=== PATIENT | female | born 1945 | race Caucasian/White ===

== ENCOUNTER 2019-11-13 10:14 | Inpatient (IN) | payer MEDICARE, MEDICAID ==
[~2019-11-13] VITALS: Ht 160 cm; Wt 144.7 kg
--- NOTE | 2019-11-13 10:35 | NUR ---
[id number] FROM HOME FOR AMS PER FRIEND. AAOX2.VITAL SIGNAS CHECKED.ST HR 103.IV ON LAC #18.AXOX2.COUGHING WITH YELLOW SPUTUM.
[2019-11-13 10:58] LABS: BASOPHILS % (AUTO) 0.2 % (0.0-2.0); EOSINOPHILS % (AUTO) 0.1 % (0.0-6.0); HEMATOCRIT 32 % (33-45); HEMOGLOBIN 10.7 g/dL (11.5-14.8); LYMPHOCYTES # (AUTO) 0.4 /CMM (0.8-4.8); LYMPHOCYTES % (AUTO) 6.2 % (20.0-44.0); MEAN CORPUSCULAR HGB CONC 33 g/dl (31.0-36.0); MEAN CORPUSCULAR VOLUME 98 fL (82-100); MONOCYTES # (AUTO) 0.5 /CMM (0.1-1.30); MONOCYTES % (AUTO) 7.4 % (2.0-12.0); NEUTROPHILS # (AUTO) 6.1 /CMM (1.8-8.9); NEUTROPHILS % (AUTO) 86.1 % (43.0-81.0); PLATELET COUNT (AUTO) 142 /CMM (150-450); RED BLOOD CELL COUNT(AUTO) 3.28 MIL/uL (4.0-5.2); WHITE BLOOD COUNT (AUTO) 7.1 K/uL (4.3-11.0)
[2019-11-13 11:09] LABS: APPEARANCE,URINE Clear (CLEAR); BILIRUBIN,URINE SMALL (NEGATIVE); BLOOD, URINE Small Ery/uL (NEGATIVE); COLOR,URINE Yellow (YELLOW); KETONES,URINE Negative (NEGATIVE); LEUKOCYTE ESTERASE ,URINE Large (NEGATIVE); NITRITE, URINE Positive (NEGATIVE); PROTEIN,URINE >=300 mg/dl (NEGATIVE); UGLUCOSE Negative (NEGATIVE)
[2019-11-13 11:11] LABS: BACTERIA,URINE 1+ /HPF (None Seen); PH,URINE >9.0 (5.0-8.0)
[2019-11-13 11:12] LABS: SQUAMOUS EPITHELIAL CELL,UR Moderate /HPF (None Seen)
--- NOTE | 2019-11-13 12:15 | NUR ---
PATIENT TAKEN FOR CT SCAN
[2019-11-13 12:24] LABS: CARBON DIOXIDE 25 mmol/L (21-32); CHLORIDE 103 mmol/L (98-107); GLUCOSE 110 mg/dL (74-106); POTASSIUM 4.1 mmol/L (3.5-5.1); SODIUM SERUM 140 mmol/L (136-145)
[2019-11-13 12:25] LABS: CALCIUM, SERUM 9.3 mg/dL (8.5-10.1); CREATININE 1.4 mg/dL (0.6-1.3); UREA NITROGEN, BLOOD 44 mg/dL (7-18)
[2019-11-13 12:35] LABS: ACETAMINOPHEN 0 ug/ml (10-30); ALANINE AMINOTRANSFERASE 46 U/L (12-78); ALBUMIN 3.3 g/dL (3.4-5.0); ALKALINE PHOSPHATASE 92 U/L (46-116); ASPARTATE AMINOTRANSFERASE 226 U/L (15-37); BILIRUBIN,DIRECT 0.5 mg/dL (0.0-0.2); BILIRUBIN,TOTAL 1.9 mg/dL (0.2-1.0); SALICYLATE < 2.8 mg/dL (2.8-20.0); TOTAL PROTEIN, SERUM 8.3 g/dL (6.4-8.2)
--- NOTE | 2019-11-13 12:38 | NUR ---
called rn sup for bed, waiting
[2019-11-13 12:51] LABS: ALCOHOL, BLOOD < 3 mg/dL (0-0)
[2019-11-13] MEDS ORDERED: FURO20TA4 PO (12:58)
[2019-11-13] MEDS ORDERED: HYDR-3980 PO (12:58)
[2019-11-13] MEDS ORDERED: GABA-534 PO (12:58)
[2019-11-13] MEDS ORDERED: MELO-105 PO (12:58)
[2019-11-13] MEDS ORDERED: AMIT50TA3 PO (12:58)
[2019-11-13] MEDS ORDERED: ROPI0.255 PO (12:58)
[2019-11-13] MEDS ORDERED: BENA40TA8 PO (12:58)
[2019-11-13] MEDS ORDERED: FLUT16SP16 (12:58)
[2019-11-13] MEDS ORDERED: SULFAMETHOXAZOLE/TRIMETHOPRIM 20 ML in IV D5W 500 ML IV SCH (13:00)
[2019-11-13 13:02] LABS: SERUM AMMONIA 12 umol/L (11-32)
[2019-11-13] MEDS ORDERED: IV NS 0.9% 1,000 ML BAG IV ONE (13:30)
[2019-11-13] MEDS ORDERED: ASPIRIN 325 MG TABLET PO ONE (13:30)
[2019-11-13] MEDS ORDERED: ASPIRIN 325 MG TABLET ONE (13:32)
[2019-11-13] MEDS: SULFAMETHOXAZOLE/TRIMETHOPRIM 10 ML in IV D5W 250 ML IV SCH ×4 (13:33→23:59)
--- NOTE | 2019-11-13 14:30 | NUR ---
report given majo REYNA
[2019-11-13 14:51] VITALS: BP 143/59
--- NOTE | 2019-11-13 15:00 | NUR ---
LOSS PREVENTION/SAFETY DISTRICT MANAGER NOTE RECEIVED PATIENT IN BED ALERT WITH CONFUSION , PLACED ON TELE MONITOR SR HR 78 , WITH MULTIPLE WOUNDS ON BODY ,WOUND CARE CONSULT ORDERED , ADMITTED UNDER CARE DR MARJORIE MOHR DNP WITH DX ALOC , HOSPITAL,ORIENTATION DONE VS TAKEN , PLCED ON IVF ORDERED BED IN LOWEST AND LOCKED POSITION, CALL LIGHT WITHIN REACH
[2019-11-13] MEDS ORDERED: FLUTICASONE PROPIONATE 16 GM BOTTLE NS PRN (15:30)
[2019-11-13] MEDS ORDERED: Z GUARD REMEDY 2 OZ OINT TP PRN (16:00)
[2019-11-13] MEDS ORDERED: ENOXAPARIN SODIUM 30 MG/0.3 ML DISP.SYRIN SQ SCH (16:00)
[2019-11-13] MEDS ORDERED: ONDANSETRON HCL/PF 4 MG/2 ML VIAL IVP PRN (16:00)
[2019-11-13] MEDS ORDERED: ACETAMINOPHEN 325 MG TABLET PO PRN (16:00)
[2019-11-13] MEDS: IV NS 0.9% 1,000 ML IV PRN (16:09)
[2019-11-13] MEDS: GABAPENTIN 300 MG CAPSULE PO SCH (16:28)
[2019-11-13] MEDS: AMITRIPTYLINE HCL 25 MG TABLET PO SCH (16:28)
[2019-11-13] MEDS: MEROPENEM 500 MG in IV NS 0.9% 100 ML IV SCH (16:29)
[2019-11-13] MEDS ORDERED: FUROSEMIDE 20 MG TABLET PO SCH (17:00)
--- NOTE | 2019-11-13 17:04 | NUR ---
PRESS WRITER NOTE CALLED TO DR MARJORIE MOHR NOTIFIED THAT PATIENT I COUGHING AND PAIN NEW ORDER WITH MOTRIN AND ROBITUSSIN GIVEN WILL F\U
[2019-11-13] MEDS: GUAIFENESIN/D-METHORPHAN HB 5 ML UDC PO PRN (17:19)
[2019-11-13] MEDS ORDERED: IBUPROFEN 400 MG TABLET PO PRN (17:30)
--- NOTE | 2019-11-13 17:52 | NUR ---
telesales advisor note 2decho doing now
--- NOTE | 2019-11-13 18:04 | NUR ---
DISTRICT RESOURCE OFFICER NOTE Pt. complains of pain, offered prn Mortrin twice pt refused. Explained the benefits to her, pt refused stating that she knows that it wont help help her. Dr. Dionisio Singh notified of her troponin level trending up.
--- NOTE | 2019-11-13 18:52 | NUR ---
RN NOTES PATIENT IN STABLE CONDITION. ON TELE MONITOR WITH SINUS RHYTHM. NO SOB NOTED, 2L NC O2 SAT 96%. MULTIPLE WOUNDS DOCUMENTED SEE NURSING NOTES. PT IS ON IV FLUIDS RUNNING AT 75MLS/HR. ATE 25% OF HER DINNER. WILL CONTINUE TO MONITOR PT. SAFETY MAINTAINED. BED LOWERED, CALL LIGHT WITHIN REACH.
--- NOTE | 2019-11-13 19:23 | NUR ---
ENGLISH TEACHER NOTES PER DR MARJORIE RALPH TO INSERT CLARK CATHETER DUE TO PATIENT HAVING MULTIPLE WOUNDS ON HER BODY AND BEING INCONTINENT. WILL ENDORSE TO PM NURSE.
[2019-11-13 20:00] VITALS: BP_SYST 117; BP_SYST 121; BP_DIAS 71; BP_DIAS 73
[2019-11-14] VITALS: BP 116/54
[2019-11-14] MEDS: HYDROCODONE/APAP 5/325MG 1 EACH TABLET PO PRN ×4 (00:02→20:34)
[2019-11-14] MEDS ORDERED: SULFAMETHOXAZOLE/TRIMETHOPRIM 10 ML VIAL IV ONE (00:11)
[2019-11-14 04:00] VITALS: BP 128/65
[2019-11-14] MEDS: IV NS 0.9% 1,000 ML IV PRN ×2 (05:03→19:00)
[2019-11-14] MEDS: MEROPENEM 500 MG in IV NS 0.9% 100 ML IV SCH ×2 (05:12→17:42)
[2019-11-14 06:39] LABS: BASOPHILS % (AUTO) 0.1 % (0.0-2.0); EOSINOPHILS % (AUTO) 2.2 % (0.0-6.0); HEMATOCRIT 27 % (33-45); HEMOGLOBIN 9.1 g/dL (11.5-14.8); LYMPHOCYTES # (AUTO) 0.5 /CMM (0.8-4.8); MEAN CORPUSCULAR HGB CONC 34 g/dl (31.0-36.0); MEAN CORPUSCULAR VOLUME 98 fL (82-100); MONOCYTES # (AUTO) 0.5 /CMM (0.1-1.30); MONOCYTES % (AUTO) 10.3 % (2.0-12.0); NEUTROPHILS # (AUTO) 3.7 /CMM (1.8-8.9); NEUTROPHILS % (AUTO) 77.4 % (43.0-81.0); PLATELET COUNT (AUTO) 99 /CMM (150-450); RED BLOOD CELL COUNT(AUTO) 2.74 MIL/uL (4.0-5.2); WHITE BLOOD COUNT (AUTO) 4.8 K/uL (4.3-11.0)
[2019-11-14 06:55] LABS: THYROID STIMULATING HORMONE 1.317 uIU/mL (0.358-3.74)
[2019-11-14 07:00] LABS: ALBUMIN 2.6 g/dL (3.4-5.0); BILIRUBIN,TOTAL 1.4 mg/dL (0.2-1.0); CALCIUM, SERUM 8.5 mg/dL (8.5-10.1); CREATININE 1.2 mg/dL (0.6-1.3); PHOSPHORUS 2.8 mg/dL (2.5-4.9); POTASSIUM 3.8 mmol/L (3.5-5.1); TOTAL PROTEIN, SERUM 6.6 g/dL (6.4-8.2)
--- NOTE | 2019-11-14 07:50 | NUR ---
TD/RN INITIAL NOTES,AM RECEIVED BEDSIDE REPORT FROM NIGHT NURSE. PT ALERT, AWAKE, FOLLOWS COMMANDS. PT ON NASAL CANULA, NO DISTRESS NOTED. PT ON TELE, SINUS. PT MOANING AND COMPLAINING OF PAIN, PAIN MEDICATION GIVEN AND WILL REASSESS. BARIATRIC BED ORDERED BY MD, WAITING FOR ARRIVAL. WOUND CONSULT PENDING, MULTIPLE SKIN ISSUES NOTED. PT ON SOFT DIET, ASSISTANCE NEEDED. PIV'S PATENT AND INTACT, NO S/S OF INFECTION OR INFILTRATION NOTED, IVF INFUSING ORDERED. ALL NEEDS WILL BE ATTENDED TO, SAFETY MEASURES TAKEN, BED IN LOW POSITION, SIDE RAILS UP, CALL LIGHT WITHIN REACH. WILL CONTINUE CARE.
[2019-11-14 08:00] VITALS: BP 123/60
--- NOTE | 2019-11-14 08:00 | NUR ---
TD/RN: WOUND RN AT BEDSIDE. PT ASSESSED, WITH FOLLOW ORDERS RECEIVED. BARIATRIC BED ON ITS WAY.
--- NOTE | 2019-11-14 08:07 | NUR ---
WOUND CARE CONSULT: PT PRESENTS WITH MULTIPLE SKIN ISSUES INCLUDING STAGE 3 ULCERS TO SACRUM AND BILATERAL BUTTOCKS, INCONTINENCE ASSOCIATED SKIN DAMAGE TO GLUTEAL CREASE AND THIGHS WELL DISCOLORATION WITH THICKENED SKIN AND RAISED AREAS TO BILATERAL LOWER LEGS, TENDER DISCOLORED AREAS TO PLANTAR HEELS, ALL PRESENT ON ADMISSION. RECOMMEND SURGICAL CONSULT AND PODIATRY CONSULT. BARIZ-good ETS AIR BED ORDERED. PT IS INCONTINENT OF STOOL. CLARK CATH NOTED. ALL SKIN PROTECTION AND WOUND CARE RECOMMENDATIONS DISCUSSED WITH NURSING STAFF. DEFER TO PODIATRY FOR LOWER EXTREMITIES. DR BULMARO SUAZO AND DR CASTILLO NOTIFIED OF SURGICAL AND DPM CONSULT REQUESTS. WILL SEE PRN. YADAV IN AGREEMENT WITH PLAN OF CARE. CURRENT GONZALES SCORE IS 10. Addendum: 11/14/19 at 0811 by DIXIE CASTILLO WNDNU Amended: Links added.
[2019-11-14] MEDS ORDERED: HYDROGEL DRESSING 90 GM TUBE TP PRN (08:30)
[2019-11-14] MEDS: ASPIRIN EC 81 MG TABLET.DR PO SCH (08:46)
[2019-11-14] MEDS: SULFAMETHOXAZOLE/TRIMETHOPRIM 10 ML in IV D5W 250 ML IV SCH ×2 (08:46→16:13)
[2019-11-14] MEDS: AMITRIPTYLINE HCL 25 MG TABLET PO SCH (08:46)
[2019-11-14] MEDS: GABAPENTIN 300 MG CAPSULE PO SCH ×2 (08:46→17:42)
[2019-11-14] MEDS: ropiniROLE 0.5 MG TABLET PO SCH (08:47)
[2019-11-14] MEDS: BENAZEPRIL HCL 20 MG TABLET PO SCH (08:50)
[2019-11-14] MEDS: HYDROGEL DRESSING 90 GM TUBE TP SCH (08:51)
[2019-11-14 08:55] LABS: APPEARANCE,URINE CLEAR (CLEAR); BILIRUBIN,URINE NEGATIVE (NEGATIVE); BLOOD, URINE TRACE Ery/uL (NEGATIVE); COLOR,URINE YELLOW (YELLOW); KETONES,URINE NEGATIVE (NEGATIVE); LEUKOCYTE ESTERASE ,URINE SMALL (NEGATIVE); NITRITE, URINE NEGATIVE (NEGATIVE); PROTEIN,URINE NEGATIVE (NEGATIVE); UGLUCOSE NEGATIVE (NEGATIVE); UROBILINOGEN,URINE 0.2 EU/dL (0.2)
[2019-11-14] MEDS ORDERED: SULFAMETHOXAZOLE/TRIMETHOPRIM 10 ML in IV D5W 250 ML IV SCH (09:00)
[2019-11-14] MEDS ORDERED: MELOXICAM 7.5 MG TABLET PO SCH (09:00)
[2019-11-14 09:01] LABS: BACTERIA,URINE None seen /HPF (None Seen); RBC,URINE 0-2 /HPF (0-2); SQUAMOUS EPITHELIAL CELL,UR Few /HPF (None Seen)
[2019-11-14 10:01] LABS: EOSINOPHIL,URINE None Seen
[2019-11-14 10:26] LABS: CREATININE, URINE 28.8 MG/DL (30.0-125.0)
[2019-11-14 16:00] VITALS: BP 111/61
[2019-11-14] MEDS ORDERED: ENOXAPARIN SODIUM 30 MG/0.3 ML DISP.SYRIN SQ SCH (18:30)
[2019-11-14] MEDS ORDERED: APIXABAN 5 MG TABLET PO SCH (18:30)
--- NOTE | 2019-11-14 18:34 | NUR ---
relayed result patient positive dvt lower extremities ,also platelet significantly drop ,raeann costa changed lovenox to eliquis.
--- NOTE | 2019-11-14 18:58 | NUR ---
TD/RN: ENDING NOTES,AM BEDSIDE REPORT WILL BE ENDORSED TO NIGHT NURSE. PT ALERT, AWAKE, FOLLOWS COMMANDS. ON NASAL CANULA, NO DISTRESS. POSITIVE DVT RELAYED TO MARJORIE AGUAYO, ORDERS RECEIVED. MULTIPLE WOUNDS NOTED, WOUND CARE DONE PER MD ORDERS. PIVS PATENT AND INTACT, NO S/S OF INFECTION NOTED. IVF INFUSING ORDERED. ALL NEEDS ATTENDED TO, SAFETY MEASURES TAKEN, BED IN LOW POSITION, SIDE RAILS UP, CALL LIGHT WITHIN REACH. WILL CONTINUE CARE.
[2019-11-14 20:00] VITALS: BP 125/66
[2019-11-14] MEDS: RIVAROXABAN 15 MG TABLET PO SCH (20:33)
[2019-11-15] MEDS: SULFAMETHOXAZOLE/TRIMETHOPRIM 10 ML in IV D5W 250 ML IV SCH ×2 (00:28→09:35)
[2019-11-15] MEDS: IV NS 0.9% 1,000 ML IV PRN ×2 (03:59→18:28)
[2019-11-15 04:00] VITALS: BP 112/59
[2019-11-15] MEDS: MEROPENEM 500 MG in IV NS 0.9% 100 ML IV SCH ×2 (04:17→16:16)
[2019-11-15] MEDS: HYDROCODONE/APAP 5/325MG 1 EACH TABLET PO PRN ×5 (04:20→23:07)
--- NOTE | 2019-11-15 07:00 | NUR ---
LANDSCAPER NOTES PATIENT IS A/O 2-3 PATIENT IS IN 2LPM O2 . PATIENT IS SATURATING WELL AT 96 %. IS RESTING COMFORABLE IN BED AND EASILY WOKEN WITH NAME AND TOUCH . PATIENT HAS MULTIPLE WOUNDS DRESSINGS INTACT AND DRY. PATIENT DOES SEEM TO HAVE GENERALIZED EDEMA NON PITTING. PATIENT HAS CLARK INTACT. PATENT AND INTACT. PATIENT HAS RFA 22 AND LFA 22 WITH NS @ 75 ML/HR . BED LOCKED AND LOWEST POSITION CALL LIGHT WITH IN REACH. ALL SAFETY PRECAUTIONS IMPLEMENTED PER HOSPITAL POLICY .
[2019-11-15 07:06] LABS: ALBUMIN 2.3 g/dL (3.4-5.0); BILIRUBIN,TOTAL 0.8 mg/dL (0.2-1.0); CALCIUM, SERUM 7.8 mg/dL (8.5-10.1); CREATININE 1.2 mg/dL (0.6-1.3); MAGNESIUM 1.9 mg/dL (1.8-2.4); PHOSPHORUS 2.8 mg/dL (2.5-4.9); POTASSIUM 3.8 mmol/L (3.5-5.1); TOTAL PROTEIN, SERUM 6.1 g/dL (6.4-8.2)
[2019-11-15 07:22] LABS: BASOPHILS % (AUTO) 0.2 % (0.0-2.0); EOSINOPHILS % (AUTO) 7.7 % (0.0-6.0); HEMATOCRIT 25 % (33-45); HEMOGLOBIN 8.5 g/dL (11.5-14.8); LYMPHOCYTES # (AUTO) 0.5 /CMM (0.8-4.8); LYMPHOCYTES % (AUTO) 11.6 % (20.0-44.0); MEAN CORPUSCULAR HGB CONC 34 g/dl (31.0-36.0); MEAN CORPUSCULAR VOLUME 98 fL (82-100); MONOCYTES # (AUTO) 0.4 /CMM (0.1-1.30); MONOCYTES % (AUTO) 10.6 % (2.0-12.0); NEUTROPHILS # (AUTO) 2.9 /CMM (1.8-8.9); NEUTROPHILS % (AUTO) 69.9 % (43.0-81.0); PLATELET COUNT (AUTO) 88 /CMM (150-450); RED BLOOD CELL COUNT(AUTO) 2.54 MIL/uL (4.0-5.2); WHITE BLOOD COUNT (AUTO) 4.1 K/uL (4.3-11.0)
[2019-11-15 08:00] VITALS: BP 120/65
[2019-11-15] MEDS: ASPIRIN EC 81 MG TABLET.DR PO SCH (09:32)
[2019-11-15] MEDS: ropiniROLE 0.5 MG TABLET PO SCH (09:34)
[2019-11-15] MEDS: GABAPENTIN 300 MG CAPSULE PO SCH ×2 (09:34→16:18)
[2019-11-15] MEDS: BENAZEPRIL HCL 20 MG TABLET PO SCH (09:34)
[2019-11-15] MEDS: AMITRIPTYLINE HCL 25 MG TABLET PO SCH (09:36)
[2019-11-15] MEDS: HYDROGEL DRESSING 90 GM TUBE TP SCH (09:36)
[2019-11-15] MEDS: RIVAROXABAN 15 MG TABLET PO SCH ×2 (09:37→16:17)
--- NOTE | 2019-11-15 13:57 | NUR ---
RN MS NOTES - FNS PATIENT PER REQUEST MECHANICAL SOFT DIET. PATIENT STATE SHE IS HAVING TROUBLE WITH CHEWING DUE TO TEETH
[2019-11-15] MEDS: GUAIFENESIN/D-METHORPHAN HB 5 ML UDC PO PRN ×2 (14:47→19:48)
[2019-11-15 16:00] VITALS: BP 123/55
--- NOTE | 2019-11-15 18:42 | NUR ---
RN MS NOTES CLOSING PATIENT IS A/O X4 PATIENT IS ON O2 PER DR ORDERS . PATIENT SEEM WHAT LOOKS LIKE GENERALIZED EDEMA. PATIENT SHOWS NO SIGNS OF ACUTE RESPIRATORY DISTRESS, EVEN AND UNLABORED BREATHING.BED LOCK AND LOWEST POSITION CALL LIGHT WITH IN REACH . PATIENT TURNED AND REPOSITION Q2 HOURS .ALL SAFETY MEASURE IMPLEMENTED PER HOSPITAL POLICY. ALL METS MET WILL ENDORSE TO PM SHIFT
--- NOTE | 2019-11-15 19:40 | NUR ---
MS1 RN NOTES RECEIVED ON BED ON SEMI FOWLERS POSITION,BREATHING NON LABORED,O2 IN USED ON AND OFF.O2 SAT 95% ON ROOM AIR.IVF NS AT 75ML/HR RATE INFUSING VIA IV PUMP ON LFA,SITE PATENT.CLARK CATH IN PLACE DRAINING YELLOWISH OUTPUT.OBESE, ON GEL BED FOR SKIN MANAGEMENT.BILATERAL LOWER LEG WITH DRESSING INTACT AND DRY,ELEVATED ON PILLOWS.CALL LIGHT IN REACH,NEEDS ANTICIPATED.
--- NOTE | 2019-11-15 19:48 | NUR ---
MS1 RN NOTES C/O ON AND OFF WHITFIELD COUGH,MEDICATED WITH ROBITUSSIN DM 5ML PO PER PATIENT REQUEST.
[2019-11-15 20:00] VITALS: BP 116/76
--- NOTE | 2019-11-15 23:07 | NUR ---
MS1 RN NOTES PAIN MANAGEMENT C/O PAIN 7/10 ON PAIN SCALE ON BILATERAL LOWER EXTREMITIES.MEDICATED WITH NORCO 5/325MG, 1 TAB PO ORDERED.
--- NOTE | 2019-11-16 00:45 | NUR ---
MS1 RN NOTES EVENING CARE RENDERED,TOLERATED WELL.
--- NOTE | 2019-11-16 01:00 | NUR ---
MS1 RN NOTES AWAKE,NOTED SLIGHT BLOOD ON HER BLANKET,CLAIMED SHE BLOW OUT MUCUS FROM HER NOSE AND THERE'S SMALL BLOOD CLOT.NOTED HER RIGHT INDEX FINGER SMEARED WITH BLOOD.TRIED TO DIG ON HER NOSE WITH HER NAILS LONG,MOST LIKELY IT IRRITATES THE NASAL MUCOSA
--- NOTE | 2019-11-16 01:05 | NUR ---
MS1 RN NOTES ADVISED TO STOP DIGGING INSIDE HER NOSE TO PREVENT FURTHER IRRITATION AND BLEEDING
[2019-11-16 04:00] VITALS: BP 123/54
[2019-11-16] MEDS: HYDROCODONE/APAP 5/325MG 1 EACH TABLET PO PRN ×5 (04:22→23:29)
--- NOTE | 2019-11-16 04:22 | NUR ---
MS1 RN NOTES AWAKE,RESTLESS,C/O BILATERAL FOOT PAIN 6/10 ON PAIN SCALE.MEDICATED WITH NORCO 5/325MG,1 TAB PO ORDERED
[2019-11-16] MEDS: MEROPENEM 500 MG in IV NS 0.9% 100 ML IV SCH ×2 (04:23→18:13)
--- NOTE | 2019-11-16 06:15 | NUR ---
MS1 RN NOTES SLEPT WITH INTERVALS,DRESSING CHANGE DONE WITH BETADINE ON BILATERAL FOOT,CONTINUE TO ELEVATE ON PILLOWS,EDEMA IMPROVED.MEPILEX CHANGED TO SACRAL AREA.IVF IN PROGRESS ON LEFT ARM.PAIN MANAGEMENT EFFECTIVE.IN NO ACUTE DISTRESS.CALL LIGHT IN REACH,NEEDS ATTENDED.
[2019-11-16 06:50] LABS: BASOPHILS % (AUTO) 0.2 % (0.0-2.0); EOSINOPHILS % (AUTO) 8.2 % (0.0-6.0); HEMATOCRIT 25 % (33-45); HEMOGLOBIN 8.6 g/dL (11.5-14.8); LYMPHOCYTES # (AUTO) 0.5 /CMM (0.8-4.8); LYMPHOCYTES % (AUTO) 9.7 % (20.0-44.0); MEAN CORPUSCULAR HGB CONC 34 g/dl (31.0-36.0); MEAN CORPUSCULAR VOLUME 99 fL (82-100); MONOCYTES # (AUTO) 0.6 /CMM (0.1-1.30); MONOCYTES % (AUTO) 11.9 % (2.0-12.0); NEUTROPHILS # (AUTO) 3.8 /CMM (1.8-8.9); PLATELET COUNT (AUTO) 109 /CMM (150-450); RED BLOOD CELL COUNT(AUTO) 2.57 MIL/uL (4.0-5.2); WHITE BLOOD COUNT (AUTO) 5.4 K/uL (4.3-11.0)
--- NOTE | 2019-11-16 07:00 | NUR ---
RN MS1 - OPENING NOTES PATIENT IS A/O 2-3 PATIENT IS IN 2LPM O2 . PATIENT IS SATURATING WELL AT 97 %. IS RESTING COMFORTABLY AND AWAKE . PATIENT HAS MULTIPLE WOUNDS DRESSINGS INTACT AND DRY. PATENT HAS BILATERAL WOUNDS ON THE HEELS . PATIENT DOES SEEM TO HAVE GENERALIZED EDEMA NON PITTING. PATIENT HAS CLARK INTACT. PATENT AND INTACT. PATIENT HAS RFA 22 AND LFA 22 WITH NS @ 75 ML/HR . BED LOCKED AND LOWEST POSITION CALL LIGHT WITH IN REACH. ALL SAFETY PRECAUTIONS IMPLEMENTED PER HOSPITAL POLICY .
[2019-11-16 07:19] LABS: CALCIUM, SERUM 7.6 mg/dL (8.5-10.1); CARBON DIOXIDE 28 mmol/L (21-32); CHLORIDE 108 mmol/L (98-107); CREATININE 1.2 mg/dL (0.6-1.3); GLUCOSE 93 mg/dL (74-106); MAGNESIUM 1.9 mg/dL (1.8-2.4); PHOSPHORUS 2.6 mg/dL (2.5-4.9); POTASSIUM 4.4 mmol/L (3.5-5.1); SODIUM SERUM 143 mmol/L (136-145); UREA NITROGEN, BLOOD 29 mg/dL (7-18)
[2019-11-16 08:00] VITALS: BP 159/67
[2019-11-16] MEDS: ASPIRIN EC 81 MG TABLET.DR PO SCH (09:00)
[2019-11-16] MEDS: ropiniROLE 0.5 MG TABLET PO SCH (09:16)
[2019-11-16] MEDS: GABAPENTIN 300 MG CAPSULE PO SCH ×2 (09:17→18:07)
[2019-11-16] MEDS: BENAZEPRIL HCL 20 MG TABLET PO SCH (09:17)
[2019-11-16] MEDS: GUAIFENESIN/D-METHORPHAN HB 5 ML UDC PO PRN (09:17)
[2019-11-16] MEDS: HYDROGEL DRESSING 90 GM TUBE TP SCH (09:18)
[2019-11-16] MEDS: RIVAROXABAN 15 MG TABLET PO SCH ×2 (09:19→18:08)
[2019-11-16] MEDS: AMITRIPTYLINE HCL 25 MG TABLET PO SCH (09:20)
[2019-11-16] MEDS: CARVEDILOL 12.5 MG TABLET PO SCH ×2 (10:33→21:15)
[2019-11-16] MEDS: IV NS 0.9% 1,000 ML IV PRN (14:45)
[2019-11-16 16:00] VITALS: BP 122/65
[2019-11-16] MEDS ORDERED: BUMETANIDE INJ 4 MG in IV NS 0.9% 24 ML IV ONE (16:30)
[2019-11-16] MEDS ORDERED: POTASSIUM CHLORIDE 20 MEQ TAB.PRT.SR PO ONE (16:30)
--- NOTE | 2019-11-16 19:30 | NUR ---
MS RN OPENING NOTES, RECEIVED PATIENT IN BED AWAKE. PATIENT IS A/O X4. PATIENT IS ON 2L O2 TOLERATING WELL. NO ACUTE RESPIRATORY DISTRESS OR SOB NOTED AT THIS TIME. PATIENT HAS GENERALIZED EDEMA. IV ON LFA #22 TKO. FLUSHING AND NO S/S OF INFILTRATION NOTED. BED IN LOCK/LOWEST POSITION, CALL LIGHT WITHIN REACH. ALL SAFETY MEASURE IMPLEMENTED PER HOSPITAL POLICY. WILL CONTINUE TO MONITOR.
[2019-11-17] MEDS: HYDROCODONE/APAP 5/325MG 1 EACH TABLET PO PRN ×6 (03:30→23:19)
[2019-11-17 04:00] VITALS: BP 123/47
--- NOTE | 2019-11-17 04:45 | NUR ---
MS RN NOTES, PATIENT REQUESTED PAIN MEDICATION, NORCO, AT 0325, CRYING AND COMPLAINING OF PAIN 8/10 AT THE TIME, AFTER PULLING THE MED AND SCANNING IT PATIENT WAS SLEEP AND STILL SLEEP 0440. VS STABLE, NO ACUTE DISTRESS NOTED AT THIS TIME. PATIENT DID NOT WAKE UP DURING 0400 VS MONITORING, WILL CONTINUE TO MONITOR.
[2019-11-17] MEDS: MEROPENEM 500 MG in IV NS 0.9% 100 ML IV SCH ×2 (04:59→16:18)
[2019-11-17 06:13] LABS: BASOPHILS % (AUTO) 0.2 % (0.0-2.0); EOSINOPHILS % (AUTO) 13.2 % (0.0-6.0); HEMATOCRIT 27 % (33-45); LYMPHOCYTES # (AUTO) 0.5 /CMM (0.8-4.8); LYMPHOCYTES % (AUTO) 10.8 % (20.0-44.0); MEAN CORPUSCULAR HGB CONC 34 g/dl (31.0-36.0); MEAN CORPUSCULAR VOLUME 99 fL (82-100); MONOCYTES # (AUTO) 0.6 /CMM (0.1-1.30); MONOCYTES % (AUTO) 11.6 % (2.0-12.0); NEUTROPHILS # (AUTO) 3.2 /CMM (1.8-8.9); NEUTROPHILS % (AUTO) 64.2 % (43.0-81.0); PLATELET COUNT (AUTO) 114 /CMM (150-450); RED BLOOD CELL COUNT(AUTO) 2.71 MIL/uL (4.0-5.2)
--- NOTE | 2019-11-17 06:38 | NUR ---
MS RN CLOSING NOTES, PATIENT IN BED SLEEPING AROUSES EASILY. PATIENT IS A/O X4. PATIENT IS ON 2L O2, TOLERATING WELL. NO ACUTE RESPIRATORY DISTRESS OR SOB NOTED AT THIS TIME. PATIENT HAS GENERALIZED EDEMA. IV ON LFA #22 TKO. FLUSHING AND NO S/S OF INFILTRATION NOTED. BED IN LOCK/LOWEST POSITION, CALL LIGHT WITHIN REACH. ALL SAFETY MEASURE IMPLEMENTED. WILL ENDORSE THE CONTINUES CARE TO AM RN.
[2019-11-17 06:52] LABS: CREATININE 1.2 mg/dL (0.6-1.3); MAGNESIUM 1.8 mg/dL (1.8-2.4); PHOSPHORUS 3.3 mg/dL (2.5-4.9); POTASSIUM 4.7 mmol/L (3.5-5.1)
--- NOTE | 2019-11-17 07:00 | NUR ---
RN MS NOTES - OPENING PATIENT IS IN BED RESTING COMFORTABLY 2 X RAILS UP PATIENT IS ASLEEP BUT EASILY WOKEN WITH NAME AND TOUCH . PATIENT IS A/O X2-3 PATIENT IS ON 2LPM 02. PATIENT IS TOLERATING PRESCRIBED PATIENT HAS MULTIPLE WOUNDS DRESS INTACT AND DRY. PATIENT HAS BILATERAL WOUNDS ON THE HEELS. PATIENT DOES SEEM TO HAVE GENERALIZED EDEMA NON PITTING. PATIENT HAS CLARK INTACT AND PATENT. PATIENTS URINE IS YELLOW PATIENT HAS RFA 22 AND LFA 22 BOTH LINES PATENT AND INTACT. BED LOCKED AND LOWEST POSITION CALL LIGHT WITH IN REACH. ALL SAFETY PRECAUTIONS IMPLEMENTED PER HOSPITAL POLICY
[2019-11-17 08:00] VITALS: BP_SYST 134; BP_SYST 138; BP_DIAS 60; BP_DIAS 87
[2019-11-17] MEDS ORDERED: FUROSEMIDE 40 MG TABLET PO SCH (09:00)
[2019-11-17] MEDS ORDERED: ropiniROLE 0.5 MG TABLET PO SCH (09:00)
[2019-11-17] MEDS: GABAPENTIN 300 MG CAPSULE PO SCH ×2 (09:18→16:18)
[2019-11-17] MEDS: ASPIRIN EC 81 MG TABLET.DR PO SCH (09:18)
[2019-11-17] MEDS: CARVEDILOL 12.5 MG TABLET PO SCH ×2 (09:19→21:07)
[2019-11-17] MEDS: AMITRIPTYLINE HCL 25 MG TABLET PO SCH (09:19)
[2019-11-17] MEDS: BENAZEPRIL HCL 20 MG TABLET PO SCH (09:20)
[2019-11-17] MEDS: RIVAROXABAN 15 MG TABLET PO SCH ×2 (09:21→16:19)
[2019-11-17] MEDS: HYDROGEL DRESSING 90 GM TUBE TP SCH (09:24)
[2019-11-17] MEDS: GUAIFENESIN/D-METHORPHAN HB 5 ML UDC PO PRN (10:43)
[2019-11-17 12:00] VITALS: BP 101/48
[2019-11-17] MEDS ORDERED: RIVA10TA PO (13:21)
[2019-11-17 16:00] VITALS: BP 101/48
[2019-11-17 16:11] LABS: *SPE A/G RATIO 0.7 (0.7-1.7); *SPE ALBUMIN 2.4 g/dL (2.9-4.4); *SPE ALPHA-1-GLOBULIN 0.3 g/dL (0.0-0.4); *SPE ALPHA-2-GLOBULIN 0.6 g/dL (0.4-1.0); *SPE BETA GLOBULIN 0.9 g/dL (0.7-1.3); *SPE GLOBULIN, TOTAL 3.5 g/dL (2.2-3.9); *SPE M-SPIKE Not Observed g/dL (Not Observed); *SPEGAMMA GLOBULIN 1.7 g/dL (0.4-1.8)
--- NOTE | 2019-11-17 19:16 | NUR ---
RN MS NOTES CLOSING PATIENT IS IN BED RESTING COMFORTABLY WITH 2 X RAILS UP PATINET IS AWAKE AND HEALTH RECORDS TECHNOLOGY TEACHER AT BED SIDE. PATIENT IS A/O X3 PATIENT IS ON 2LMP 02 ON AND OFF. PATIENT IS TOLERATING PRECRIBED BY . PATIENT HAS MULTIPLE WOUNDS DRESS INTACT AND DRY. PATIENT HAS BILATERAL WOUNDS ON THE HEELS . PATIENT DOES SEEM TO HAVE GENERALIZED EDEMA NON PITTING. PATIENT HAS CLARK INTACT AND PATENT WITH 2880 OUT CLEAR AND YELLOW . PATIENT HAS RFA 22 AND LFA 22 BOTH LINES PATENT AND INTACT. BED LOCKED AND LOWEST POSITION CALL LIGHT WITH IN REACH . ALL SAFETY MEASURE IMPLEMENTED PER HOSPITAL POLICY PATIENT WAITING FOR TRANSPORTATION 1999 ENDORSED TO PM SHIFT PATIENT BELONGINGS SIGNED
--- NOTE | 2019-11-17 19:30 | NUR ---
MS RN OPENING NOTES, RECEIVED PATIENT IN BED AWAKE. PATIENT IS A/O X4. PATIENTS CARE GIVERS AT BEDSIDE. PATIENT IS ON 2L O2 TOLERATING WELL. NO ACUTE RESPIRATORY DISTRESS OR SOB NOTED AT THIS TIME. PATIENT HAS GENERALIZED EDEMA. IV ON LFA #22 TKO. FLUSHING AND NO S/S OF INFILTRATION NOTED. PATIENT IS SCHEDULED TO BE DISCHARGE HOME AT 8PM. ALL DOCUMENTS SIGNED AND PATIENT IS WAITING FOR AMBULANCE. BED IN LOCK/LOWEST POSITION, CALL LIGHT WITHIN REACH. WILL CONTINUE TO MONITOR.
[2019-11-17 20:00] VITALS: BP 112/46
[2019-11-17 21:07] VITALS: BP 112/46
--- NOTE | 2019-11-17 22:15 | NUR ---
MS RN NOTE, AMBULANCE WAS SCHEDULED FOR 1999 AND POSTPONED TO 2199 AND AT 2215 PER CAREGIVERS REQUEST I CALLED THE AMBULANCE AND THE PICKUP WILL BE AT 0100 T0 0130. WILL CONTINUE TO MONITOR THE PATIENT.
--- NOTE | 2019-11-17 23:15 | NUR ---
THE AMBULANCE CALLED AND BECAUSE OF A CANCELATIONS THEY HAD THE PATIENT WILL BE PICKED UP IN 20 TO 30 MIN.
[2019-11-18 15:06] LABS: PTH, INTACT 46 pg/mL (15-65)
[2019-12-05] MEDS ORDERED: RIVAROXABAN 10 MG TABLET PO SCH (17:00)
== END 2019-11-18 00:38 | disposition home or self-care (01) | DRG 871 ==
LOC: ER 10:20 → TELE1 13:23 → MEDSG1 11-14 10:13
PROVIDERS: ADMIT Nurse Practitioner Acute Care; ATTEND Nurse Practitioner Acute Care
DX: A41.9 Sepsis, unspecified organism (principal); N17.0 Acute kidney failure with tubular necrosis; I21.A1 Myocardial infarction type 2; G93.41 Metabolic encephalopathy; I50.33 Acute on chronic diastolic (congestive) heart failure; I82.411 Acute embolism and thrombosis of right femoral vein; E87.2 Acidosis; R17 Unspecified jaundice; N39.0 Urinary tract infection, site not specified; I13.0 Hypertensive heart and chronic kidney disease with heart failure and stage 1 through stage 4 chronic kidney disease, or unspecified chronic kidney disease; Z68.43 Body mass index [BMI] 50.0-59.9, adult; L89.616 Pressure-induced deep tissue damage of right heel; D69.6 Thrombocytopenia, unspecified; L89.626 Pressure-induced deep tissue damage of left heel; I11.0 Hypertensive heart disease with heart failure; D63.8 Anemia in other chronic diseases classified elsewhere; J44.9 Chronic obstructive pulmonary disease, unspecified; N18.9 Chronic kidney disease, unspecified; B35.1 Tinea unguium; G25.81 Restless legs syndrome; Z87.440 Personal history of urinary (tract) infections; I27.20 Pulmonary hypertension, unspecified; E66.01 Morbid (severe) obesity due to excess calories; I87.2 Venous insufficiency (chronic) (peripheral); I89.0 Lymphedema, not elsewhere classified; J45.909 Unspecified asthma, uncomplicated; E86.0 Dehydration; D36.7 Benign neoplasm of other specified sites; L97.529 Non-pressure chronic ulcer of other part of left foot with unspecified severity; Z88.0 Allergy status to penicillin; B96.4 Proteus (mirabilis) (morganii) as the cause of diseases classified elsewhere; R40.2413 Glasgow coma scale score 13-15, at hospital admission
CPT/HCPCS: 36415; 70450-TC; 71045-TC; 73630-TC; 80048-TC; 80053-TC; 80061-TC; 80076-TC; 80305; 81000-TC; 82140-TC; 82550-TC; 82570-TC; 82728-TC; 83540-TC; 83605-TC; 83735-TC; 83880; 83970; 84100-TC; 84155; 84155-TC; 84165; 84300-TC; 84439-TC; 84443-TC; 84484-TC; 85025-TC; 85730-TC; 87081-TC; 87086-TC; 87186-TC; 93307-TC; 93970-TC; 97530-TC; A6248; A6253; G0378; G0480; J1650; J2185; J3490; J7030; J7060

== ENCOUNTER 2019-12-12 15:04 | Inpatient (IN) | payer MEDICAID, MEDICARE ==
[~2019-12-12] VITALS: Ht 160 cm; Wt 147.9 kg
[~2019-12-12 15:04] MED LIST: AMIT50TA3 PO; BENA40TA8 PO; FLUT16SP16; FURO20TA4 PO; GABA-534 PO; HYDR-3980 PO; MELO-105 PO; RIVA10TA PO; ROPI0.255 PO
--- NOTE | 2019-12-12 15:20 | NUR ---
PT AAOX4. BIBPA. C/O "MY DOCTOR SAID MY SODIUM WAS LOW AND THAT I SHOULD GO TO THE ED AND RECIEVE FLUIDS." EDEMA NOTED ON B LEGS. PT ALSO HAS A CATHETER AND STATES SHE HAS IT DUE TO HER NOT BEING ABLE TO AMBULATE. PT STATES SHE LIVES AT HOME AND HAS A CAREGIVER. PLACED ON MONITOR AND PULSE OX. VSS. AT BEDSIDE FOR EVAL. NO ACUTE DISTRESS NOTED. WILL COTNINUE TO MONITOR.
[2019-12-12] MEDS ORDERED: IV NS 0.9% 1,000 ML BAG IV ONE (15:30)
[2019-12-12] MEDS ORDERED: ONDANSETRON HCL/PF 4 MG/2 ML VIAL IVP ONE (15:30)
[2019-12-12] MEDS ORDERED: ONDANSETRON HCL/PF 4 MG/2 ML VIAL ONE (15:30)
--- NOTE | 2019-12-12 15:37 | NUR ---
URINE AND LABS COLLECTED BY LINE ORDERING CLINICIAN
[2019-12-12 15:39] LABS: APPEARANCE,URINE Cloudy (CLEAR); BASOPHILS % (AUTO) 0.7 % (0.0-2.0); BILIRUBIN,URINE Negative (NEGATIVE); BLOOD, URINE Small Ery/uL (NEGATIVE); COLOR,URINE Yellow (YELLOW); EOSINOPHILS % (AUTO) 10.1 % (0.0-6.0); HEMATOCRIT 28 % (33-45); HEMOGLOBIN 9.4 g/dL (11.5-14.8); KETONES,URINE Negative (NEGATIVE); LEUKOCYTE ESTERASE ,URINE Small (NEGATIVE); LYMPHOCYTES # (AUTO) 0.8 /CMM (0.8-4.8); LYMPHOCYTES % (AUTO) 19.4 % (20.0-44.0); MEAN CORPUSCULAR HGB CONC 34 g/dl (31.0-36.0); MEAN CORPUSCULAR VOLUME 100 fL (82-100); MONOCYTES # (AUTO) 0.5 /CMM (0.1-1.30); MONOCYTES % (AUTO) 12.7 % (2.0-12.0); NEUTROPHILS # (AUTO) 2.3 /CMM (1.8-8.9); NEUTROPHILS % (AUTO) 57.1 % (43.0-81.0); NITRITE, URINE Negative (NEGATIVE); PLATELET COUNT (AUTO) 133 /CMM (150-450); PROTEIN,URINE Negative (NEGATIVE); RED BLOOD CELL COUNT(AUTO) 2.81 MIL/uL (4.0-5.2); UGLUCOSE Negative (NEGATIVE); UROBILINOGEN,URINE 0.2 EU/dL (0.2)
[2019-12-12 15:44] LABS: PH,URINE >9.0 (5.0-8.0)
[2019-12-12 15:52] LABS: ALANINE AMINOTRANSFERASE 14 U/L (12-78); ALBUMIN 2.8 g/dL (3.4-5.0); ALKALINE PHOSPHATASE 78 U/L (46-116); ASPARTATE AMINOTRANSFERASE 28 U/L (15-37); BILIRUBIN,DIRECT 0.2 mg/dL (0.0-0.2); BILIRUBIN,TOTAL 0.5 mg/dL (0.2-1.0); CALCIUM, SERUM 9.3 mg/dL (8.5-10.1); CARBON DIOXIDE 29 mmol/L (21-32); CHLORIDE 95 mmol/L (98-107); CREATININE 1.7 mg/dL (0.6-1.3); GLUCOSE 105 mg/dL (74-106); POTASSIUM 4.7 mmol/L (3.5-5.1); SODIUM SERUM 131 mmol/L (136-145); TOTAL PROTEIN, SERUM 7.7 g/dL (6.4-8.2); UREA NITROGEN, BLOOD 57 mg/dL (7-18)
[2019-12-12 15:57] LABS: BACTERIA,URINE 3+ /HPF (None Seen); CALCIUM OXALATE CRYSTALS,UR Moderate /HPF (None Seen); SQUAMOUS EPITHELIAL CELL,UR Few /HPF (None Seen)
--- NOTE | 2019-12-12 16:31 | NUR ---
PT RESTING IN BED COMFORTABLY, SPEAKING TO FRIEND OVER THE PHONE. VSS.
--- NOTE | 2019-12-12 16:50 | NUR ---
CALLED FOR MS BED
--- NOTE | 2019-12-12 16:57 | NUR ---
[address] RO[address] SIGN INSTALLER PAGED
--- NOTE | 2019-12-12 17:13 | NUR ---
RECIEVED BED 110
--- NOTE | 2019-12-12 17:23 | NUR ---
PT RESTING COMFORTABLY, VSS. FRIEND AT BEDSIDE.
--- NOTE | 2019-12-12 17:35 | NUR ---
REPORT GIVEN TO YOEL REYNA FOR RAMON
--- NOTE | 2019-12-12 18:25 | NUR ---
PT TRASNFERED TO BED 110.
[2019-12-12 18:30] VITALS: BP 92/44
--- NOTE | 2019-12-12 18:30 | NUR ---
ELASTIC YARN TWISTER HELPER NOTE RECEIVED REPORT FROM ALEC THOMAS RN. PATIENT IN BED, AWAKE AND ALERT. CAME FROM HOME. CC OF LOW NA AND DEHYDRATION. ON ROOM AIR, NO COMPLAINS OF ANY SOB. ALERT AND ORIENTED X4. HAS A CLARK CATH FROM HOME. HAS A LEFT UA #20. PATIENT REQUESTING TO HAVE NORCO Q4H. VSS AT THIS TIME. WILL ENDORSE TO NOC SHIFT FOR ADMISSION
[2019-12-12] MEDS ORDERED: ACETAMINOPHEN 325 MG TABLET PO PRN (19:00)
[2019-12-12] MEDS ORDERED: ZOLPIDEM TARTRATE 5 MG TABLET PO PRN (19:00)
[2019-12-12] MEDS ORDERED: ONDANSETRON HCL/PF 4 MG/2 ML VIAL IVP PRN (19:00)
[2019-12-12] MEDS ORDERED: Z GUARD REMEDY 2 OZ OINT TP PRN (19:00)
[2019-12-12] MEDS ORDERED: GABAPENTIN 300 MG CAPSULE PO SCH (19:00)
[2019-12-12 19:26] LABS: URINE TOTAL PROTEIN 20.7 mg/dL (0-11.9)
--- NOTE | 2019-12-12 19:50 | NUR ---
RN NOTES ADMITTED PATIENT. INITIAL REPORT GIVEN BY AM NURSE AXEL DIALLO. RECEIVED PATIENT LYING IN BED, ALERT ORIENTED X4.CAREGIVER AT BEDSIDE. ADMISSION PROCESS INITIATED, ALL SAFETY MEASURES IN PLACE, REPOSITIONED FOR COMFORT. SKIN ASSESSMENT DONE, PHOTO TAKEN AND PLACED IN THE PATIENT'S CHART. IV ACCESS ON HER LEFT UPPER ARM G#22 INTACT AND PATENT. COMPLAINED OF PAIN AROUND HER WAIST AND LOWER BACK AND LOWER EXTREMITIES. CLARK CATHETER INTACT AND PATENT DRAINING YELLOW URINE OUTPUT. CALL LIGHT WITH IN EASY REACH. ALL NEEDS ANTICIPATED, WILL CONTINUE TO MONITOR ACCORDINGLY.
[2019-12-12] MEDS: DOCUSATE SODIUM 100 MG CAPSULE PO SCH (20:42)
[2019-12-12] MEDS: RIVAROXABAN 10 MG TABLET PO SCH (20:47)
[2019-12-12 22:16] VITALS: BP 90/39
[2019-12-12] MEDS: HYDROCODONE/APAP 5/325MG 1 EACH TABLET PO PRN (22:38)
[2019-12-13] VITALS (8 sets, daily range): BP systolic 97–122; BP diastolic 37–48
[2019-12-13] MEDS: HYDROCODONE/APAP 5/325MG 1 EACH TABLET PO PRN ×5 (05:17→21:55)
[2019-12-13 06:00] LABS: ALANINE AMINOTRANSFERASE 16 U/L (12-78); ALBUMIN 2.3 g/dL (3.4-5.0); ALKALINE PHOSPHATASE 64 U/L (46-116); ASPARTATE AMINOTRANSFERASE 28 U/L (15-37); BILIRUBIN,TOTAL 0.4 mg/dL (0.2-1.0); CARBON DIOXIDE 30 mmol/L (21-32); CHLORIDE 99 mmol/L (98-107); CREATININE 1.7 mg/dL (0.6-1.3); GLUCOSE 89 mg/dL (74-106); MAGNESIUM 2.3 mg/dL (1.8-2.4); PHOSPHORUS 4.1 mg/dL (2.5-4.9); POTASSIUM 5.1 mmol/L (3.5-5.1); SODIUM SERUM 133 mmol/L (136-145); TOTAL PROTEIN, SERUM 6.4 g/dL (6.4-8.2); UREA NITROGEN, BLOOD 55 mg/dL (7-18)
[2019-12-13 06:30] LABS: BASOPHILS % (AUTO) 0.5 % (0.0-2.0); EOSINOPHILS % (AUTO) 7.5 % (0.0-6.0); HEMATOCRIT 25 % (33-45); HEMOGLOBIN 8.5 g/dL (11.5-14.8); LYMPHOCYTES # (AUTO) 0.5 /CMM (0.8-4.8); LYMPHOCYTES % (AUTO) 21.6 % (20.0-44.0); MEAN CORPUSCULAR HGB CONC 34 g/dl (31.0-36.0); MEAN CORPUSCULAR VOLUME 99 fL (82-100); MONOCYTES # (AUTO) 0.4 /CMM (0.1-1.30); MONOCYTES % (AUTO) 14.8 % (2.0-12.0); NEUTROPHILS # (AUTO) 1.3 /CMM (1.8-8.9); NEUTROPHILS % (AUTO) 55.6 % (43.0-81.0); PLATELET COUNT (AUTO) 101 /CMM (150-450); RED BLOOD CELL COUNT(AUTO) 2.51 MIL/uL (4.0-5.2); WHITE BLOOD COUNT (AUTO) 2.4 K/uL (4.3-11.0)
[2019-12-13 06:54] LABS: IRON, SERUM 87 ug/dl (50-175); TOTAL IRON BINDING CAPACITY 272 ug/dl (250-450)
--- NOTE | 2019-12-13 07:07 | NUR ---
RN NOTES ALL NEEDS ATTENDED AND MET. ABLE TO REST AND SLEPT AT INTERVALS. KEPT CLEAN DRY AND COMFORTABLE. SAFETY MEASURES IN PLACE. ENDORSED TO AM NURSE FOR CONTINUITY OF CARE.
[2019-12-13 07:48] LABS: CHOLESTEROL 93 mg/dL (<200); CREATINE KINASE, TOTAL 138 U/L (26-192); HDL CHOLESTEROL 43 mg/dL (40-60); LDL 42 mg/dL (0-99); THYROID STIMULATING HORMONE 4.648 uIU/mL (0.358-3.74); TRIGLYCERIDES 45 mg/dL (30-150)
[2019-12-13 08:24] LABS: FERRITIN 44 ng/mL (8-388)
[2019-12-13] MEDS: AMITRIPTYLINE HCL 25 MG TABLET PO SCH (08:49)
[2019-12-13] MEDS: DOCUSATE SODIUM 100 MG CAPSULE PO SCH ×2 (08:49→17:22)
[2019-12-13] MEDS: ropiniROLE 0.5 MG TABLET PO SCH (08:49)
[2019-12-13] MEDS ORDERED: AMITRIPTYLINE HCL 50 MG TABLET PO SCH (09:00)
[2019-12-13] MEDS ORDERED: FLUTICASONE PROPIONATE 16 GM BOTTLE NS PRN (09:00)
--- NOTE | 2019-12-13 09:28 | NUR ---
alert, oriented, appropriate. no youth care professional around. multiple skin issues noticeable, awaiting wound care evaluation. by mistake, breakfast tray given , appetite excellen, advised NOT to eat nor drink after the breakfast. NPO per dr Mckeon
--- NOTE | 2019-12-13 10:48 | NUR ---
assessment revealed- secondary to lymphedema, awaiting input from wound care, and dr Mckeon. secondary to her weight, more than 300lbs, redness under breast folds, both groins, both right and left soles, some lacerations. Need to refer to pics taken on admission to have a clear idea. c/o pain on both legs, one po NORCPO given at 0945, with relief
--- NOTE | 2019-12-13 13:34 | NUR ---
continues to ask for NORCO, claimed at home she has been taking 10/325mg , brought to the WHEELABRATOR OPERATOR, Aisha Spencer, no new order written One po 5/325mg po given now for legs pain, " did not want Neurontin"
[2019-12-13] MEDS: RIVAROXABAN 10 MG TABLET PO SCH (17:24)
--- NOTE | 2019-12-13 17:52 | NUR ---
passed gas, but no bm noted. continues to ask for pain, both legs, scaled 5-6/10, last medicated with NORCO was 1745.
[2019-12-13] MEDS ORDERED: MEPERIDINE HCL/PF 100 MG/ML DISP.SYRIN IV PRN (19:00)
[2019-12-14 02:25] VITALS: BP 116/46
[2019-12-14 04:00] VITALS: BP 141/65
[2019-12-14] MEDS: HYDROCODONE/APAP 5/325MG 1 EACH TABLET PO PRN ×2 (04:47→09:39)
--- NOTE | 2019-12-14 07:36 | NUR ---
RN OPENING NOTES Patient remains on room air, no sob noted, patient a/o x4 and is able to verbalize needs. Mitchell remains in place and is draining. Regular diet with a LIS 20. Patient comfortable on bed at this time. Bed at the lowest setting, call light within reach, side rails up x2.
[2019-12-14 08:00] VITALS: BP 134/51
[2019-12-14] MEDS: AMITRIPTYLINE HCL 25 MG TABLET PO SCH (08:00)
[2019-12-14] MEDS: DOCUSATE SODIUM 100 MG CAPSULE PO SCH ×2 (08:00→16:54)
[2019-12-14] MEDS: ropiniROLE 0.5 MG TABLET PO SCH (08:00)
[2019-12-14 08:06] LABS: IMMUNOGLOBULIN A, SERUM 467 mg/dL (64-422); IMMUNOGLOBULIN G, SERUM 1866 mg/dL (700-1600); IMMUNOGLOBULIN M, SERUM 71 mg/dL (26-217)
[2019-12-14 10:49] LABS: ALANINE AMINOTRANSFERASE 18 U/L (12-78); ALBUMIN 2.2 g/dL (3.4-5.0); ALKALINE PHOSPHATASE 63 U/L (46-116); ASPARTATE AMINOTRANSFERASE 28 U/L (15-37); BILIRUBIN,TOTAL 0.5 mg/dL (0.2-1.0); CALCIUM, SERUM 8.5 mg/dL (8.5-10.1); CARBON DIOXIDE 30 mmol/L (21-32); CHLORIDE 103 mmol/L (98-107); CREATININE 1.5 mg/dL (0.6-1.3); GLUCOSE 117 mg/dL (74-106); POTASSIUM 4.3 mmol/L (3.5-5.1); SODIUM SERUM 137 mmol/L (136-145); TOTAL PROTEIN, SERUM 6.3 g/dL (6.4-8.2); UREA NITROGEN, BLOOD 42 mg/dL (7-18)
[2019-12-14 12:00] VITALS: BP 134/51
[2019-12-14] MEDS: HYDROCODONE/APAP 10/325MG 1 EA TABLET PO SCH ×3 (14:39→20:19)
[2019-12-14] MEDS: MAGNESIUM HYDROXIDE 30 ML UDC PO PRN (15:32)
[2019-12-14] MEDS: RIVAROXABAN 10 MG TABLET PO SCH (16:55)
--- NOTE | 2019-12-14 18:27 | NUR ---
RN CLOSING NOTES Patient moved to 117-1. Remins on room air, no sob noted, patient a/o x4 and denies pain at this time. Mitchell remains in place and is draining well. L UA 20 gauge present. Kera Tafoya states that she wants to be updated with the care plan for the patient as well. PT eval pending, order was placed, but patient was not seen. Explained to the patient that tomorrow has a good chance of doing PT. Bed at the lowest setting, call light within reach, side rails up x2. Will give report to NOC RN for RAMON bedside.
--- NOTE | 2019-12-14 19:15 | NUR ---
MS1 RN NOTES RECEIVED ON BED SLEEPING,AROURASBLE TO VERBAL STIMULI.MORBIDLY OBESE BUT ABLE TO HELP TO REPOSITION SELF.BILATERAL LOWER EXTREMITIES EDEMATOUS WITH SOME SKIN DRYNESS,SALINE LOCK LEFT UPPER ARM INTACT AND PATENT.CALL LIGHT IN REACH,NEEDS ANTICIPATED.
[2019-12-14 20:00] VITALS: BP 116/56
[2019-12-14 20:13] VITALS: BP 116/56
[2019-12-15] MEDS: HYDROCODONE/APAP 10/325MG 1 EA TABLET PO SCH ×6 (00:46→20:03)
[2019-12-15] MEDS: MAGNESIUM HYDROXIDE 30 ML UDC PO PRN (01:49)
--- NOTE | 2019-12-15 01:49 | NUR ---
MS1 RN NOTES C/O NO BM X1 WEEK,MILK OF MAGNESIA 30ML PO GIVEN PER PATIENT REQUEST.
[2019-12-15 04:00] VITALS: BP 129/58
[2019-12-15 04:22] VITALS: BP 129/58
--- NOTE | 2019-12-15 06:46 | NUR ---
MS RN NOTES LAYING COMFORTABLY ON BED,STILL NO BM DESPITE GIVEN 30ML OF MOM.ENCOURAGED TO INCREASED PO LIQUID INTAKE.IN NO ACUTE DISTRESS.
[2019-12-15 06:55] LABS: BASOPHILS % (AUTO) 0.7 % (0.0-2.0); EOSINOPHILS % (AUTO) 8.6 % (0.0-6.0); HEMATOCRIT 27 % (33-45); HEMOGLOBIN 8.9 g/dL (11.5-14.8); LYMPHOCYTES # (AUTO) 0.4 /CMM (0.8-4.8); MEAN CORPUSCULAR HGB CONC 33 g/dl (31.0-36.0); MEAN CORPUSCULAR VOLUME 100 fL (82-100); MONOCYTES # (AUTO) 0.3 /CMM (0.1-1.30); MONOCYTES % (AUTO) 12.6 % (2.0-12.0); NEUTROPHILS # (AUTO) 1.3 /CMM (1.8-8.9); NEUTROPHILS % (AUTO) 58.1 % (43.0-81.0); PLATELET COUNT (AUTO) 89 /CMM (150-450); RED BLOOD CELL COUNT(AUTO) 2.66 MIL/uL (4.0-5.2); WHITE BLOOD COUNT (AUTO) 2.2 K/uL (4.3-11.0)
[2019-12-15 07:07] LABS: ALBUMIN 2.3 g/dL (3.4-5.0); BILIRUBIN,TOTAL 0.4 mg/dL (0.2-1.0); CALCIUM, SERUM 8.5 mg/dL (8.5-10.1); CREATININE 1.3 mg/dL (0.6-1.3); MAGNESIUM 1.9 mg/dL (1.8-2.4); PHOSPHORUS 2.8 mg/dL (2.5-4.9); POTASSIUM 4.3 mmol/L (3.5-5.1); TOTAL PROTEIN, SERUM 6.6 g/dL (6.4-8.2)
[2019-12-15 07:10] LABS: PTH, INTACT 42 pg/mL (15-65)
--- NOTE | 2019-12-15 07:15 | NUR ---
RN OPENING NOTES: RECEIVED PT IN BED, AWAKE A&OX4, MORBIDLY OBESE. NO RESPIRATORY DISTRESS OR SOB NOTED. PT ABLE TO VERBALIZE NEEDS. HAS #20 IN LEFT AC, FLUSHED AND PATENT. HAS DRYNESS ON BILATERAL LOWER EXTREMITIES. PER ENDORSEMENTS, HAS PODIATRY CONSULT TODAY. BED IN LOWEST POSITION W/ SIDE RAILS UP X2 AND. CALL LIGHT WITHIN REACH. WILL CONTINUE TO MONITOR.
[2019-12-15 08:00] VITALS: BP 116/54
[2019-12-15] MEDS: ropiniROLE 0.5 MG TABLET PO SCH (08:19)
[2019-12-15] MEDS: AMITRIPTYLINE HCL 25 MG TABLET PO SCH (08:19)
[2019-12-15] MEDS: DOCUSATE SODIUM 100 MG CAPSULE PO SCH ×2 (08:19→16:07)
[2019-12-15] MEDS: LACTULOSE 10 G/15 ML UDC (PYXIS) PO PRN (08:19)
[2019-12-15 08:22] LABS: NEUTROPHILS % (MANUAL) 60 (42-76)
[2019-12-15 08:23] LABS: EOSINOPHILS % (MANUAL) 6 % (0-4); LYMPHOCYTES % (MANUAL) 22 % (16-48); MONOCYTES % (MANUAL) 12 % (0-11.0)
--- NOTE | 2019-12-15 08:55 | NUR ---
WOUND CARE CONSULT: PT PRESENTS WITH DISCOLORATION AND TENDERNESS TO BILATERAL PLANTAR FEET WITH REDNESS AND THICKENED SKIN TO LOWER LEGS, REDNESS/RASH TO RT ABDOMINAL/GROIN FOLD AND SCARRING TO SACRAL AND BUTTOCKS AREAS, PRESENT ON ADMISSION. RECOMMEND DPM CONSULT DR CASTILLO NOTIFIED OF CONSULT REQUEST. RECOMMENDATIONS MADE FOR SKIN PROTECTION AND SKIN CARE. DISCUSSED WITH NURSING STAFF. [facility] AIR BED ORDERED. WILL SEE PRN. YADAV IN AGREEMENT WITH PLAN OF CARE. Addendum: 12/15/19 at 0858 by DIXIE CASTILLO WNDNU Amended: Links added.
[2019-12-15] MEDS: CLOTRIMAZOLE 1% 15 GM TUBE TP SCH ×2 (09:39→16:09)
[2019-12-15] MEDS ORDERED: ALBUTEROL FS 2.5 MG/0.5 ML VIAL.NEB NEB PRN (11:30)
[2019-12-15] MEDS ORDERED: IPRATROPIUM NEB FS 0.5 MG/2.5 ML AMPUL.NEB NEB PRN (11:30)
[2019-12-15] MEDS: GUAIFENESIN LA 600 MG TABLET.SA PO SCH ×2 (12:05→20:04)
[2019-12-15 16:00] VITALS: BP 111/54
[2019-12-15] MEDS: RIVAROXABAN 10 MG TABLET PO SCH (16:07)
--- NOTE | 2019-12-15 17:05 | NUR ---
RN CLOSING NOTES: PT IN BED RESTING, A&0X4, NO RESPIRATORY DISTRESS OR SOB NOTED. ALL MEDICATIONS ADMINISTERED ORDERED. BED IN LOWEST AND LOCKED POSITION. ALL NEEDS HAVE BEEN MET. ENDORSED TO NOC RN FOR RAMON.
--- NOTE | 2019-12-15 19:19 | NUR ---
MS/RN OPENING NOTES RECEIVED PATIENT IN BED, HOB ELEVATED, ALERT, ORIENTED X3, ABLE TO VERBALIZE NEEDS, REPORTED WITH GENERALIZED PAIN CHRONIC. , SKIN WARM TO TOUCH, BED LOCKED,CALL LIGHTS WITHIN REACH, ON ROOM AIR. IV SITE ON LIS, ON NORCO FOR PAIN, AWAITINGFOR BARRYMAX 2 PED CONTACTED CENTRAL SUPPLY AND LEFT MESSAGE. WILL MONITOR.PATIENT REQUIRE EXTENSIVE ASSISTANCE.
[2019-12-15 19:56] VITALS: BP 103/44
[2019-12-15 20:00] VITALS: BP 103/44
[2019-12-16] VITALS: BP 103/44
[2019-12-16] MEDS: LACTULOSE 10 G/15 ML UDC (PYXIS) PO PRN ×2 (00:47→13:37)
[2019-12-16] MEDS: HYDROCODONE/APAP 10/325MG 1 EA TABLET PO SCH ×4 (00:47→13:37)
--- NOTE | 2019-12-16 00:49 | NUR ---
ms/rn notes NORCO 10-325 MG PO GIVEN, PATIENT ALERT, ORIENTED X3, ABLE TO VERBALIZE NEEDS, OBSERVED FRIMACE AND GUARDING AND MOANING, TO MONITOR RELIEF.
[2019-12-16 04:00] VITALS: BP 132/71
[2019-12-16] MEDS: MAGNESIUM HYDROXIDE 30 ML UDC PO PRN (04:28)
--- NOTE | 2019-12-16 04:37 | NUR ---
MS/RN NOTES NORCO 5-325 MG PO GIVEN FOR ROUTINE PAIN MEDICATION AND MOM FOR CONSTIPATION.
--- NOTE | 2019-12-16 06:35 | NUR ---
117-1 MS/RN OPENING NOTES PATIENT ALERT, ORIENTED, REQUIRE EXTENSIVE ASSISTANCE IN TURNING AND REPOSITION ASSISTED WITH ALL NEEDS, ON PAINMEDICATION, MONITORING FOR BOWEL MOVEMENT. BED LOCKED, CALL LIGHTS WITHNIN TRINA, WILL ENDORSE TO AM RN FOR RAMON.
[2019-12-16 08:00] VITALS: BP 126/47
--- NOTE | 2019-12-16 08:00 | NUR ---
RN NOTES RECEIVED PATIENT IN THE BED OBESE, BED BOUND TOTAL CARE. PATIENT A/O X3, NO ACUTE RESPIRATORY DISTRESS, V/S STABLE, PATIENT WAS COMPLAINING OF GENERALIZED PAIN ADMINISTERED NARCO 10/325 SCHEDULED, ALSO PATIENT WAS COMPLAINING OF CONSTIPATION. ACCORDING NIGHT NURSE PATIENT HAS BOWEL MOVEMENT X1 DURING NIGHT. ADMINISTERED SCHEDULED MEDICATION, ASSIST TURN AND REPOSTION Q 2 HR. IV ACCESS ON LEFT AC AREA INTACT SL. ENCOURAGED TO INCREASE FLUID INTAKE, F/C DRAINING LIGHT YELLOW OUTPUT. CONTINUED MONITORING.
--- NOTE | 2019-12-16 09:00 | NUR ---
rn notes Patient get bariatric bed as prescribed.
[2019-12-16] MEDS: AMITRIPTYLINE HCL 25 MG TABLET PO SCH (09:53)
[2019-12-16] MEDS: DOCUSATE SODIUM 100 MG CAPSULE PO SCH (09:53)
[2019-12-16] MEDS: ropiniROLE 0.5 MG TABLET PO SCH (09:53)
[2019-12-16] MEDS: CLOTRIMAZOLE 1% 15 GM TUBE TP SCH (09:54)
[2019-12-16] MEDS: GUAIFENESIN LA 600 MG TABLET.SA PO SCH (09:54)
--- NOTE | 2019-12-16 13:40 | NUR ---
rn notes administered lactulose 30 ml po prrn for constipation per patient request, also patient going to discharge home with home health. call light within to reach, continued monitoring.
[2019-12-16 16:00] VITALS: BP 124/53
--- NOTE | 2019-12-16 16:00 | NUR ---
CYLINDER PRESS OPERATOR HELPER NOTES PATIENT DISCHARGE AT THIS TIME GOING HOME STABLE WITH HOME HEALTH, V/S WNL, CLARK CATHETER DRAINING LIGHT YELLOW OUTPUT INTACT, REFUSED PAIN AT THIS TIME. MED RECONCILIATION AND DISCHARGE ORDER REVIEWED AND EXPLAINED TO PATIENT. PATIENT VERBALIZED UNDERSTANDING. BELONGING WITH THE PATIENT. PICTURE TAKEN, PATIENT SIGN PAPERWORK. MEDICATION ELECTRONICALLY SEND TO THE [facility] VIA [facility] VISCOSITY INSPECTOR . CIRCULAR KNITTER HELPER AWARE OF DISCHARGE PLANING. PATIENT SUPERVISOR MICROWAVE BY AMBULANCE. PATIENT WILL FOLLOW PRIMARY MD.
[2019-12-16] MEDS ORDERED: AMMONIUM LACTATE 227 GM BOTTLE TP SCH (17:00)
[2019-12-17 08:08] LABS: *SPE A/G RATIO 0.6 (0.7-1.7); *SPE ALBUMIN 2.8 g/dL (2.9-4.4); *SPE ALPHA-1-GLOBULIN 0.3 g/dL (0.0-0.4); *SPE ALPHA-2-GLOBULIN 0.7 g/dL (0.4-1.0); *SPE BETA GLOBULIN 1.1 g/dL (0.7-1.3); *SPE GLOBULIN, TOTAL 4.5 g/dL (2.2-3.9); *SPE M-SPIKE Not Observed g/dL (Not Observed); *SPEGAMMA GLOBULIN 2.3 g/dL (0.4-1.8)
[2019-12-17 17:07] LABS: *ANA ANTI-CENTROMERE B AB <0.2 AI (0.0-0.9); *ANA ANTI-DNA(DS) AB, QN 7 IU/mL (0-9); *ANA ANTI-JO-1 <0.2 AI (0.0-0.9); *ANA ANTICHROMATIN ANTIBODY <0.2 AI (0.0-0.9); *ANA RNP ANTIBODIES 0.2 AI (0.0-0.9); *ANA SJOGREN'S ANTI-SS-A <0.2 AI (0.0-0.9); *ANA SJOGREN'S ANTI-SS-B <0.2 AI (0.0-0.9); *ANAANTI-SCLERODERMA-70 AB <0.2 AI (0.0-0.9); *ANASMITH AB <0.2 AI (0.0-0.9)
== END 2019-12-16 15:55 | disposition home health service (06) | DRG 683 ==
LOC: ER 15:06 → MEDSG1 17:46
PROVIDERS: ADMIT Nurse Practitioner Acute Care; ATTEND Nurse Practitioner Acute Care
DX: N17.0 Acute kidney failure with tubular necrosis (principal); D61.818 Other pancytopenia; D68.59 Other primary thrombophilia; E87.1 Hypo-osmolality and hyponatremia; I13.0 Hypertensive heart and chronic kidney disease with heart failure and stage 1 through stage 4 chronic kidney disease, or unspecified chronic kidney disease; I50.30 Unspecified diastolic (congestive) heart failure; Z68.43 Body mass index [BMI] 50.0-59.9, adult; N39.0 Urinary tract infection, site not specified; E44.0 Moderate protein-calorie malnutrition; E66.01 Morbid (severe) obesity due to excess calories; E88.09 Other disorders of plasma-protein metabolism, not elsewhere classified; J44.9 Chronic obstructive pulmonary disease, unspecified; Z88.2 Allergy status to sulfonamides; G25.81 Restless legs syndrome; D36.7 Benign neoplasm of other specified sites; E80.6 Other disorders of bilirubin metabolism; N18.9 Chronic kidney disease, unspecified; Z86.19 Personal history of other infectious and parasitic diseases; E86.0 Dehydration; E86.1 Hypovolemia; I89.0 Lymphedema, not elsewhere classified; Z87.440 Personal history of urinary (tract) infections; Z79.01 Long term (current) use of anticoagulants; Z88.0 Allergy status to penicillin; L84 Corns and callosities; I87.2 Venous insufficiency (chronic) (peripheral); L97.529 Non-pressure chronic ulcer of other part of left foot with unspecified severity; I73.9 Peripheral vascular disease, unspecified; Z86.718 Personal history of other venous thrombosis and embolism; B35.1 Tinea unguium; K59.00 Constipation, unspecified; K74.60 Unspecified cirrhosis of liver; D73.1 Hypersplenism
CPT/HCPCS: 36415; 71045-TC; 76700-TC; 80048-TC; 80053-TC; 80061-TC; 80074; 80076-TC; 81000-TC; 82140-TC; 82550-TC; 82570-TC; 82728-TC; 82784; 83540-TC; 83605-TC; 83735-TC; 83970; 84100-TC; 84155; 84155-TC; 84165; 84300-TC; 84443-TC; 84484-TC; 85025-TC; 85652-TC; 85730-TC; 86225; 86235; 86334; 86706; 87040-TC; 87081-TC; 87086-TC; 97112-TC; 97530-TC; G0378; J2175; J2405; J7030